=== PATIENT | female | born 1995 | race Caucasian/White ===

== ENCOUNTER → 2021-11-05 | Outpatient (CLI) | payer OTHER ==
--- NOTE | 2021-11-05 11:14 | USB ---
Reason for exam: clinical finding. History: Family history of breast cancer in mother. Taking hormonal contraceptives for 10 years. Physical Findings: Nurse Summary: palpable at 11 o'clock right breast, 0.5cm, mobile (nurse navi). US Breast RT Right complete breast ultrasound includes all four quadrants, the retroareolar region and axilla. Finding demonstrates no cystic or solid lesion seen greater than 0.5cm. Prominent tissue at palpable. These results were verbally communicated with the patient and result sheet given to the patient on 12/06/21. ASSESSMENT: Negative, BI-RAD 1 RECOMMENDATION: Clinical management of the right breast. Manage patient on a clinical basis.
== END | disposition home or self-care (01) ==
LOC: RADUSWWP 10:15
PROVIDERS: ATTEND Obstetrics & Gynecology Obstetrics
DX: R91.8 Other nonspecific abnormal finding of lung field (principal); Z80.3 Family history of malignant neoplasm of breast

== ENCOUNTER → 2022-01-02 | Outpatient (CLI) | payer OTHER ==
[2022-01-02 19:08] LABS: HCG,Quantitative Serum 6.4 (0.0-6.0); Prolactin 6.3 ng/mL (2.800-29.200)
== END | disposition home or self-care (01) ==
LOC: LABWHC1 13:07
PROVIDERS: ATTEND Obstetrics & Gynecology Obstetrics
DX: O20.0 Threatened abortion (principal); Z3A.00 Weeks of gestation of pregnancy not specified
CPT/HCPCS: 36415; 84146; 84702; 86850; 86900; 86901